=== PATIENT | male | born 2005 | race African-American/Black ===

== ENCOUNTER 2023-05-18 01:36 | Emergency (ER) | payer OTHER ==
[2023-05-18] MEDS ORDERED: SODIUM CHLORIDE 0.9% 1,000 ML IV STA (01:43)
--- NOTE | 2023-05-18 01:43 | ED Physician Documentation ---
History of Present Illness - Stated complaint Stated Complaint: ETOH/VOMITING - History obtained from History obtained from: EMS - Additonal information Additional information: 18yM with no known medical history p/w alcohol intoxication. patient vomited once per ems. member of [facility] was escorting him to [facility] after he had had significant amount of alcohol and called ems. patient had normal vitals en route, fingerstick in 130s. responds to loud verbal communication. PD PAST MEDICAL HISTORY - Present Medications Home Medications: Ambulatory Orders Medication Instructions Recorded Confirmed Home Medications Unobtainable 05/18/23 05/18/23 [HOME MEDICATIONS UNOBTAINABLE] - Allergies Allergies/Adverse Reactions: Allergies Allergy/AdvReac Type Severity Reaction Status Date / Time Unable to Assess Allergy Verified 05/18/23 02:14 PD ED PE NORMAL - Vitals Vital signs reviewed: Yes - General General: No acute distress, Well developed/nourished, Other (clinically intoxicated) - HEENT HEENT: Atraumatic, PERRL, EOMI, Moist mucous membranes, Pharynx benign - Neck Neck: Supple, no meningeal sign - Cardiac Cardiac: RRR - Respiratory Respiratory: No respiratory distress, Clear bilaterally - Abdomen Abdomen: Non tender, Non distended - Derm Derm: Normal color, Warm and dry - Psych Psych: Other (clinically intoxicated) Results - Vitals Vitals: Vital Signs - 24 hr 05/18/23 01:35 Temperature 36.8 C Heart Rate 63 Respiratory 12 Rate Blood Pressure 130/72 O2 Saturation 100 Oxygen O2 Source Room air - Labs Labs: Laboratory Tests 05/18/23 05/18/23 02:08 02:08 WBC 5.2 RBC 5.19 Hgb 15.0 Hct 46.0 MCV 88.6 MCH 28.9 MCHC 32.6 RDW 12.5 Plt Count 234 MPV 10.8 Neut # (Auto) 3.4 Lymph # (Auto) 1.5 Trinity # (Auto) 0.2 Eos # (Auto) 0.0 Baso # (Auto) 0.0 Absolute Nucleated RBC 0.00 Nucleated RBC % 0.0 Sodium 141 Potassium 4.7 Chloride 106 Carbon Dioxide 26 Anion Gap 9.0 BUN 7 Creatinine 1.0 Estimated GFR (MDRD) 95 Glucose 127 H Calcium 9.1 Total Bilirubin 0.8 AST 21 ALT 21 Alkaline Phosphatase 62 Total Protein 8.2 Albumin 4.9 Globulin 3.3 Albumin/Globulin Ratio 1.5 Lipase 24 PD Medical Decision Making - ED course ED course: 18yM p/w acute alcohol intoxication. He sits up in bed, opens eyes when I say his name loudly. Plan to maintain on lunchroom monitor, obtain basic labs, provide IVF. labs are normal on reevaluation. patient in nAD. Patient will be endorsed to my daytime ED MD colleague at 7am shift change. Departure - Departure Clinical Impression: Alcohol abuse Condition: Stable
[2023-05-18 02:14] LABS: BASOPHILS % (AUTO) 0.4 %; EOSINOPHILS % (AUTO) 0.2 %; LYMPHOCYTES # (AUTO) 1.5 10^3/uL (1.5-3.5); LYMPHOCYTES % (AUTO) 29.5 %; MEAN CORPUSCULAR HEMOGLOBIN 28.9 pg (27.0-31.0); MEAN CORPUSCULAR HGB CONC 32.6 g/dL (32.0-36.0); MEAN CORPUSCULAR VOLUME 88.6 fL (80.0-94.0); MEAN PLATELET VOLUME 10.8 fL (7.4-11.4); MONOCYTES # (AUTO) 0.2 10^3/uL (0.0-1.0); MONOCYTES % (AUTO) 3.3 %; NEUTROPHILS # (AUTO) 3.4 10^3/uL (1.5-6.6); NEUTROPHILS % (AUTO) 66.6 %; PLT - PLATELET COUNT 234 10^3/uL (130-450); RED BLOOD COUNT 5.19 10^6/uL (4.70-6.10); RED CELL DISTRIBUTION WIDTH 12.5 % (12.0-15.0); WHITE BLOOD COUNT 5.2 x10^3/uL (4.8-10.8)
[2023-05-18 02:25] LABS: ALBUMIN 4.9 g/dL (3.2-5.5); ALBUMIN/GLOBULIN RATIO 1.5 (1.0-2.2); BILIRUBIN,TOTAL 0.8 mg/dL (0.2-1.0); CALCIUM 9.1 mg/dL (8.5-10.3); POTASSIUM 4.7 mmol/L (3.5-5.0); TOTAL PROTEIN 8.2 g/dL (6.7-8.2)
[2023-05-18 05:46] VITALS: BP 129/64
[2023-05-18 06:05] VITALS: O2SAT 97
== END 2023-05-18 06:00 | disposition home or self-care (01) ==
LOC: EDBD 01:36 → ED 01:36
DX: F10.10 Alcohol abuse, uncomplicated (principal)
CPT/HCPCS: 36415; 80053; 80320; 83690; 85025; 99283; 99284